=== PATIENT | female | born 1990 | race Caucasian/White ===

== ENCOUNTER 2017-03-02 06:45 | Emergency (ER) | payer OTHER ==
[~2017-03-02] VITALS: Ht 162.6 cm; Wt 64.0 kg
[~2017-03-02 06:45] MED LIST: IBUP-1542 PO; PRENAT PO
[2017-03-02 06:48] VITALS: Ht 162.6 cm; Wt 64.0 kg
[2017-03-02] MEDS ORDERED: LORA-441 PO (07:21)
[2017-03-02] MEDS ORDERED: LORAZEPAM 1 MG TAB PO ONE (07:30)
--- NOTE | 2017-03-02 08:07 | ERD ---
ER Documentation Chief Complaint Date/Time DATE: 03/02/17 TIME: 07:54 Chief Complaint pt bib family with c/o anxiety attack this am while at work being talked to HPI 26 year old female complaining of anxiety attack earlier today at work. Patient is having difficulty with coworkers at work. She feels that she is being blamed for something that was not her fault and having difficulty managing the stress. Patient has never had anxiety in the past. Denies chest pain. Patient is not taking medications for symptoms. Denies suicidal or homicidal ideations. Denies fever. Denies headaches. Denies vomiting ROS All systems reviewed and are negative except as per history of present illness. Medications Home Meds Active Scripts Lorazepam* (Ativan*) 0.5 Mg Tablet, 0.5 MG PO Q8, #10 TAB Prov:ANDRE ALONSO PA-C 03/02/17 Ibuprofen* (Motrin*) 600 Mg Tab, 600 MG PO Q6, #30 TAB Prov:GABBY SRINIVASAN PA-C 02/21/16 Reported Medications Multivit/Min/Fol Ac/Iron/Pren* ( S*) 1 Tab Tab, 1 TAB PO DAILY, TAB 11/12/14 Allergies Allergies: Coded Allergies: No Known Allergies (Unverified Allergy, Unknown, 09/24/14) PMhx/Soc History of Surgery: Yes ( X 3) Anesthesia Reaction: No Hx Neurological Disorder: No Hx Respiratory Disorders: No Hx Cardiac Disorders: No Hx Psychiatric Problems: No Hx Miscellaneous Medical Probl: No Hx Alcohol Use: No Hx Substance Use: No Hx Tobacco Use: No Physical Exam Vitals Vital Signs Date Time Temp Pulse Resp B/P Pulse Ox O2 Delivery O2 Flow Rate FiO2 03/02/17 06:48 99.0 97 16 128/81 99 Physical Exam GENERAL: The patient is well-appearing, well-nourished, in no acute distress HEENT: Atraumatic. Conjunctivae are pink. Pupils equal, round, and reactive to light. There is no scleral icterus. Tympanic membranes clear bilaterally. Oropharynx clear. No nystagmus or photophobia. CHEST: Clear to auscultation bilaterally. There are no rales, wheezes or rhonchi. HEART: Regular rate and rhythm. No murmurs, clicks, rubs or gallops. No S3 or S4. NEUROLOGIC: Alert and oriented. Cranial nerves II through XII intact. Motor strength in all 4 extremities with 5 out of 5 strength. Sensation grossly intact. Normal speech and gait. Babinski negative. DTR 2+ throughout. Results 24 hrs Current Medications Medications (Trade) Dose Ordered Sig/Damaris Route PRN Reason Start Time Stop Time Status Last Admin Dose Admin Lorazepam (Ativan) 1 mg ONCE ONCE PO 03/02/17 07:30 03/02/17 07:31 DC 03/02/17 07:22 Procedures/MDM MDM: 26 yr old female complaining of anxiety. I have low suspicion for cardiac or pulmonary emergencies. Patient will be given anti-anxiety medication and discharge with strict ER precautions. I have low suspicion for suicidal or homicidal ideations. Patient is denying thoughts of hurting herself or others. Patient is discharged with medication and told to follow-up with primary care within 1 to 2 days for close evaluation. Patient is told to try and get herself out of her current work situation. Patient understood and complied with plan. Departure Diagnosis: Primary Impression: Anxiety attack Condition: Stable Patient Instructions: Anxiety Reaction Referrals: [facility] YOU HAVE RECEIVED A MEDICAL SCREENING EXAM AND THE RESULTS INDICATE THAT YOU DO NOT HAVE A CONDITION THAT REQUIRES URGENT TREATMENT IN THE EMERGENCY DEPARTMENT. FURTHER EVALUATION AND TREATMENT OF YOUR CONDITION CAN WAIT UNTIL YOU ARE SEEN IN YOUR DOCTORS OFFICE WITHIN THE NEXT 1-2 DAYS. IT IS YOUR RESPONSIBILITY TO MAKE AN APPOINTMENT FOR FOLOW-UP CARE. IF YOU HAVE A PRIMARY DOCTOR --you should call your primary doctor and schedule an appointment IF YOU DO NOT HAVE A PRIMARY DOCTOR YOU CAN CALL OUR PHYSICIAN REFERRAL HOTLINE AT IF YOU CAN NOT AFFORD TO SEE A PHYSICIAN YOU CAN CHOSE FROM THE FOLLOWING [facility] [address] [facility]. [facility] [address] [facility]. [facility] [address] [facility]. [facility] [address] [facility]. [facility] [address] [facility]. [facility]. [address] Additional Instructions: FOLLOW UP WITH YOUR PRIMARY CARE PHYSICIAN TOMORROW.Return to this facility if you are not improving as expected. ANDRE ALONSO PA-C Mar 02, 2017 08:07
== END 2017-03-02 07:52 | disposition home or self-care (01) ==
LOC: FTE 06:45
DX: F41.9 Anxiety disorder, unspecified (principal)
CPT/HCPCS: Z7502; Z7610; 99283

== ENCOUNTER 2017-07-16 07:52 | Emergency (ER) | END 2017-07-16 11:02 | disposition home or self-care (01) ==

== ENCOUNTER 2018-07-16 10:08 | Emergency (ER) | payer OTHER ==
[~2018-07-16] VITALS: Wt 73.2 kg
[~2018-07-16 10:08] MED LIST changes: +CYCL10TA7 PO; +LORA-441 PO
[2018-07-16 10:10] VITALS: BP 106/63; PULSE 67; RESP 18
[2018-07-16] MEDS ORDERED: CEPH-443 PO (11:04)
[2018-07-16] MEDS ORDERED: SULF1TAB31 PO (11:04)
[2018-07-16] MEDS ORDERED: NAPR-985 PO (11:04)
--- NOTE | 2018-07-16 13:23 | ERD ---
ER Documentation Chief Complaint Chief Complaint LEFT BIG TOE INGROWN NAIL HPI 28-year-old female presenting with ingrown toenail right great toe. Patient states is been like this for the last week. She says some mild drainage from her toe. Denies other medical problems. Has not use any medications on the site. NKDA. Surgical history denies. Social history denies ROS All systems reviewed and are negative except as per history of present illness. Medications Home Meds Active Scripts Naproxen* (Naprosyn*) 500 Mg Tablet, 500 MG PO BID PRN for PAIN AND/OR INFLAMMATION, #30 TAB Prov:ANDRE ALONSO PA-C 07/16/18 Sulfamethoxazole/Trimethoprim* (Bactrim Ds* Tablet) 1 Each Tablet, 1 TAB PO BID, #14 TAB Prov:ANDRE ALONSO PA-C 07/16/18 Cephalexin* (Keflex*) 500 Mg Capsule, 500 MG PO QID for 7 Days, CAP Prov:ANDRE ALONSO PA-C 07/16/18 Cyclobenzaprine Hcl* (Cyclobenzaprine Hcl*) 10 Mg Tablet, 10 MG PO TID, #15 TAB Prov:ZABRINA VALLES PA-C 07/16/17 Ibuprofen* (Motrin*) 600 Mg Tab, 600 MG PO Q6, #30 TAB Prov:ZABRINA VALLES PA-C 07/16/17 Lorazepam* (Ativan*) 0.5 Mg Tablet, 0.5 MG PO Q8, #10 TAB Prov:ANDRE ALONSO PA-C 03/02/17 Ibuprofen* (Motrin*) 600 Mg Tab, 600 MG PO Q6, #30 TAB Prov:GABBY SRINIVASAN PA-C 02/21/16 Reported Medications Multivit/Min/Fol Ac/Iron/Pren* ( S*) 1 Tab Tab, 1 TAB PO DAILY, TAB 11/12/14 Allergies Allergies: Coded Allergies: No Known Allergies (Unverified Allergy, Unknown, 07/16/18) PMhx/Soc History of Surgery: Yes ( X 3) Anesthesia Reaction: No Hx Neurological Disorder: No Hx Respiratory Disorders: No Hx Cardiac Disorders: No Hx Psychiatric Problems: No Hx Miscellaneous Medical Probl: No Hx Alcohol Use: No Hx Substance Use: No Hx Tobacco Use: No FmHx Family History: No diabetes, No coronary disease, No other Physical Exam Vitals Vital Signs Date Temp Pulse Resp B/P (MAP) Pulse Ox O2 O2 Flow FiO2 Time Delivery Rate 07/16/18 98.1 67 18 106/63 99 10:10 (77) Physical Exam GENERAL: The patient is well-appearing, well-nourished, in no acute distress CHEST: Clear to auscultation bilaterally. There are no rales, wheezes or rhonchi. HEART: Regular rate and rhythm. No murmurs, clicks, rubs or gallops. No S3 or S4 EXTREMITIES: Equal pulses bilaterally. No focal swelling NEUROLOGIC: Alert and oriented. Sensation grossly intact. SKIN: Erythema noted to bilateral sides of the right great toe. No fluctuance noted. No swelling. Procedures/MDM MDM: 28-year-old female presenting with erythema of the right great toenail. P atient did not needed removal of the toenail as there did not appear to be any swelling so I recommend patient take antibiotics and apply warm compresses. Patient is recommended to return in 2 days for wound recheck. She was told symptoms change or worsen to return sooner. I have low suspicion for deep tracking infection. All questions answered at discharge Departure Diagnosis: Primary Impression: Nail problem Condition: Stable Patient Instructions: Ingrown Toenail, Infected (Abx Only) Referrals: [facility] YOU HAVE RECEIVED A MEDICAL SCREENING EXAM AND THE RESULTS INDICATE THAT YOU DO NOT HAVE A CONDITION THAT REQUIRES URGENT TREATMENT IN THE EMERGENCY DEPARTMENT. FURTHER EVALUATION AND TREATMENT OF YOUR CONDITION CAN WAIT UNTIL YOU ARE SEEN IN YOUR DOCTORS OFFICE WITHIN THE NEXT 1-2 DAYS. IT IS YOUR RESPONSIBILITY TO MAKE AN APPOINTMENT FOR FOLOW-UP CARE. IF YOU HAVE A PRIMARY DOCTOR --you should call your primary doctor and schedule an appointment IF YOU DO NOT HAVE A PRIMARY DOCTOR YOU CAN CALL OUR PHYSICIAN REFERRAL HOTLINE AT IF YOU CAN NOT AFFORD TO SEE A PHYSICIAN YOU CAN CHOSE FROM THE FOLLOWING [facility] [address] [facility] [address] [facility]. [facility] [address] [facility] [address] [facility]. [facility] [address] [facility]. [facility]. [address] Additional Instructions: FOLLOW UP WITH YOUR PRIMARY CARE PHYSICIAN TOMORROW.Return to this facility if you are not improving as expected. ANDRE ALONSO PA-C Jul 16, 2018 13:23
== END 2018-07-16 11:17 | disposition home or self-care (01) ==
LOC: FTE 10:08
DX: L60.0 Ingrowing nail (principal)
CPT/HCPCS: 99283

== ENCOUNTER 2018-09-28 10:53 | Emergency (ER) | payer OTHER ==
[~2018-09-28] VITALS: Ht 165.1 cm; Wt 72.4 kg
[~2018-09-28 10:53] MED LIST changes: +CEPH-443 PO; +NAPR-985 PO; +SULF1TAB31 PO
[2018-09-28 10:59] VITALS: BP 112/63; PULSE 85; RESP 18; Ht 165.1 cm; Wt 72.4 kg
[2018-09-28] MEDS ORDERED: AMOX1TAB10 PO (11:21)
[2018-09-28] MEDS ORDERED: GUAIFENESIN/DM 5ML CUP PO ONE (11:30)
--- NOTE | 2018-09-28 11:37 | ERD ---
ER Documentation Chief Complaint Chief Complaint throat pain x 1 week HPI 28-year-old female with no past medical or surgical history who presents with 1 week complaint of sore throat, cough, headache, rhinorrhea, as well as generalized body aches. She is most concerned about sore throat worsening pain but denies any issues with speech and is still eating and drinking without issue. She otherwise denies fevers, chest pain, shortness of breath, dyspnea, dysphagia, nausea vomiting, diarrhea, abdominal pain, urinary symptoms. She reports no allergies to any medications. ROS All systems reviewed and are negative except as per history of present illness. Medications Home Meds Active Scripts Amoxicillin/Potassium Clav (Amox-Clav 875-125 mg Tablet) 875-125 mg Tab, 1 TAB PO BID for 7 Days, #14 TAB Prov:AYLEEN CAMP PA-C 09/28/18 Naproxen* (Naprosyn*) 500 Mg Tablet, 500 MG PO BID PRN for PAIN AND/OR INFLAMMATION, #30 TAB Prov:ANDRE ALONSO PA-C 07/16/18 Sulfamethoxazole/Trimethoprim* (Bactrim Ds* Tablet) 1 Each Tablet, 1 TAB PO BID, #14 TAB Prov:ANDRE ALONSO PA-C 07/16/18 Cephalexin* (Keflex*) 500 Mg Capsule, 500 MG PO QID for 7 Days, CAP Prov:ANDRE ALONSO PA-C 07/16/18 Cyclobenzaprine Hcl* (Cyclobenzaprine Hcl*) 10 Mg Tablet, 10 MG PO TID, #15 TAB Prov:ZABRINA VALLES PA-C 07/16/17 Ibuprofen* (Motrin*) 600 Mg Tab, 600 MG PO Q6, #30 TAB Prov:ZABRINA VALLES PA-C 07/16/17 Lorazepam* (Ativan*) 0.5 Mg Tablet, 0.5 MG PO Q8, #10 TAB Prov:ANDRE ALONSO PA-C 03/02/17 Ibuprofen* (Motrin*) 600 Mg Tab, 600 MG PO Q6, #30 TAB Prov:GABBY SRINIVASAN PA-C 02/21/16 Reported Medications Multivit/Min/Fol Ac/Iron/Pren* ( S*) 1 Tab Tab, 1 TAB PO DAILY, TAB 4/27/15 Allergies Allergies: Coded Allergies: No Known Allergies (Unverified Allergy, Unknown, 09/28/18) PMhx/Soc History of Surgery: Yes ( X 3) Anesthesia Reaction: No Hx Neurological Disorder: No Hx Respiratory Disorders: No Hx Cardiac Disorders: No Hx Psychiatric Problems: No Hx Miscellaneous Medical Probl: No Hx Alcohol Use: No Hx Substance Use: No Hx Tobacco Use: No Smoking Status: Never smoker Physical Exam Vitals Vital Signs Date Temp Pulse Resp B/P (MAP) Pulse Ox O2 O2 Flow FiO2 Time Delivery Rate 09/28/18 99.1 85 18 112/63 96 10:59 (79) Physical Exam I have reviewed the triage vital signs. Const: Well nourished, well developed, appears stated age Eyes: PERRL, no conjunctival injection HENT: NCAT, Neck supple without meningismus, tonsils enlarged but without exudate, no lesions noted, tender cervical lymphadenopathy CV: RRR, Warm, well-perfused extremities RESP: CTAB, Unlabored respiratory effort GI: soft, non-tender, non-distended, no masses MSK: No gross deformities appreciated Skin: Warm, dry. No rashes Neuro: Alert grossly intact Psych: Appropriate mood and affect. Results 24 hrs Current Medications Medications Dose Sig/Damaris Start Time Status Last (Trade) Ordered Route PRN Stop Time Admin Dose Reason Admin 10 ml ONCE ONCE 09/28/18 Guaifenesin/ PO 11:30 Dextromethorp 09/28/18 11:31 dunham (Robitussin Dm Liquid Cup) Procedures/MDM 28 yo F pt presenting with worsening of sore throat with reassuring exam. No history of immunocompromise. Nontoxic appearance. Patient euvolemic with no red flag symptoms. no trismus and no airway compromise. Able to tolerate PO. 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 Symptoms may be secondary to strep and thus have elected to treat with course of augmentin with PMD follow up. Given length of flu like symptoms and reassuring exam will not elect to treat with tamiflu. Plan to DC home with prompt outpatient PCP follow up; return precautions discussed Departure Diagnosis: Primary Impression: Sore throat Additional Impression: Strep pharyngitis Condition: Stable Patient Instructions: When You Have a Sore Throat, Self-Care for Sore Throats Additional Instructions: Call your primary care doctor TOMORROW for an appointment during the next 2-3 days.See the doctor sooner or return here if your condition worsens before your appointment time. AYLEEN CAMP PA-C Sep 28, 2018 11:37
== END 2018-09-28 12:00 | disposition home or self-care (01) ==
LOC: FTE 10:53
DX: J02.0 Streptococcal pharyngitis (principal)
CPT/HCPCS: Z7502; Z7610; 99283

== ENCOUNTER 2018-12-05 14:33 | Emergency (ER) | payer OTHER ==
[~2018-12-05] VITALS: Ht 162.6 cm; Wt 73.8 kg
[~2018-12-05 14:33] MED LIST changes: +AMOX1TAB10 PO
[2018-12-05 14:36] VITALS: BP 116/62; PULSE 74; RESP 18; Ht 162.6 cm; Wt 73.8 kg
[2018-12-05] MEDS ORDERED: ONDA4TAB14 PO (16:57)
--- NOTE | 2018-12-05 17:03 | ERD ---
ER Documentation Chief Complaint Chief Complaint vomiting x 8 today, also feels anxious with intermittent palpitations HPI 28-year-old G5, P5 female with no reported past medical surgical history who presents with complaint of feeling anxious. Also refer for reporting of intermittent vomiting today but denies any current nausea, abdominal or pelvic pain, diarrhea. 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 Has 5 children at home and reports increased level of stress providing care for children at home. She otherwise denies chest pain, shortness of breath, dyspnea, headaches, dizziness, fever, chills, urinary symptoms, drug or alcohol abuse. She denies any thoughts ideas of suicide. At time examination patient is completely nontoxic appearing with unremarkable exam. ROS All systems reviewed and are negative except as per history of present illness. Medications Home Meds Active Scripts Ondansetron (Ondansetron Odt) 4 Mg Tab.rapdis, 4 MG PO Q6H PRN for NAUSEA AND/OR VOMITING, #10 TAB Prov:AYLENE CAMP PA-C 12/05/18 Amoxicillin/Potassium Clav (Amox-Clav 875-125 mg Tablet) 875-125 mg Tab, 1 TAB PO BID for 7 Days, #14 TAB Prov:AYLEEN CAMP PA-C 09/28/18 Naproxen* (Naprosyn*) 500 Mg Tablet, 500 MG PO BID PRN for PAIN AND/OR INFLAMMATION, #30 TAB Prov:ANDRE ALONSO PA-C 07/16/18 Sulfamethoxazole/Trimethoprim* (Bactrim Ds* Tablet) 1 Each Tablet, 1 TAB PO BID, #14 TAB Prov:ANDRE ALONSO PA-C 07/16/18 Cephalexin* (Keflex*) 500 Mg Capsule, 500 MG PO QID for 7 Days, CAP Prov:ANDRE ALONSO PA-C 07/16/18 Cyclobenzaprine Hcl* (Cyclobenzaprine Hcl*) 10 Mg Tablet, 10 MG PO TID, #15 TAB Prov:ZABRINA VALLES PA-C 07/16/17 Ibuprofen* (Motrin*) 600 Mg Tab, 600 MG PO Q6, #30 TAB Prov:ZABRINA VALLES PA-C 07/16/17 Lorazepam* (Ativan*) 0.5 Mg Tablet, 0.5 MG PO Q8, #10 TAB Prov:ANDRE ALONSO PA-C 03/02/17 Ibuprofen* (Motrin*) 600 Mg Tab, 600 MG PO Q6, #30 TAB Prov:ZARINAGABBYElvin Palmer PA-C 02/21/16 Reported Medications Multivit/Min/Fol Ac/Iron/Pren* ( S*) 1 Tab Tab, 1 TAB PO DAILY, TAB 11/12/14 Allergies Allergies: Coded Allergies: No Known Allergies (Unverified Allergy, Unknown, 09/28/18) PMhx/Soc History of Surgery: Yes ( X 3) Anesthesia Reaction: No Hx Neurological Disorder: No Hx Respiratory Disorders: No Hx Cardiac Disorders: No Hx Psychiatric Problems: No Hx Miscellaneous Medical Probl: No Hx Alcohol Use: Yes (Socially) Hx Substance Use: No Hx Tobacco Use: No Smoking Status: Never smoker FmHx Family History: No diabetes, No coronary disease, No other Physical Exam Vitals Vital Signs Date Temp Pulse Resp B/P (MAP) Pulse Ox O2 O2 Flow FiO2 Time Delivery Rate 12/05/18 98.0 74 18 116/62 99 14:36 (80) Physical Exam I have reviewed the triage vital signs. Const: Well nourished, well developed, appears stated age Eyes: PERRL, no conjunctival injection HENT: NCAT, Neck supple without meningismus CV: RRR, Warm, well-perfused extremities RESP: CTAB, Unlabored respiratory effort GI: soft, non-tender, non-distended, no masses MSK: No gross deformities appreciated Skin: Warm, dry. No rashes Neuro: grossly non focal Psych: Appropriate mood and affect. Procedures/MDM 28-year-old female with past medical history of anxiety presents with complaint of anxiety. Also intermittent vomiting but denies abdominal pain or pelvic pain and with completely unremarkable abdominal exam. I have low suspicion for acute abdominal pelvic process warranting further emergent care or work-up. Given her benign exam is no indication for imaging at this time. Symptoms likely se condary to anxiety. Will discharge with short course of Ativan as well as Zofran for nausea with strict return precautions explained to patient in detail. DISPOSITION PLAN: We discussed follow up with the patient's primary care doctor within 24 to 48 ho urs. Patient counseled regarding my diagnostic impression and care plan. Prior to discharge all questions answered. Pt agrees with treatment plan and understands strict return precautions. Precautionary instructions provided including instructions to return to the ER if not improving or for any worsening or changing symptoms or concerns. Disclaimer: Inadvertent spelling and grammatical errors are likely due to EHR/dictation software use and do not reflect on the overall quality of patient care. Also, please note that the electronic time recorded on this note does not necessarily reflect the actual time of the patient encounter. Departure Diagnosis: Primary Impression: Anxiety Additional Impression: Multiple complaints Condition: Stable Patient Instructions: Your Body's Response to Anxiety, Anxiety Reaction Referrals: [facility] YOU HAVE RECEIVED A MEDICAL SCREENING EXAM AND THE RESULTS INDICATE THAT YOU DO NOT HAVE A CONDITION THAT REQUIRES URGENT TREATMENT IN THE EMERGENCY DEPARTMENT. FURTHER EVALUATION AND TREATMENT OF YOUR CONDITION CAN WAIT UNTIL YOU ARE SEEN IN YOUR DOCTORS OFFICE WITHIN THE NEXT 1-2 DAYS. IT IS YOUR RESPONSIBILITY TO MAKE AN APPOINTMENT FOR FOLOW-UP CARE. IF YOU HAVE A PRIMARY DOCTOR --you should call your primary doctor and schedule an appointment IF YOU DO NOT HAVE A PRIMARY DOCTOR YOU CAN CALL OUR PHYSICIAN REFERRAL HOTLINE AT IF YOU CAN NOT AFFORD TO SEE A PHYSICIAN YOU CAN CHOSE FROM THE FOLLOWING [facility] [address] [facility]. [facility] [address] [facility] [address] [facility]. [facility] [address] [facility] [address] [facility]. [facility]. [address] Additional Instructions: Call your primary care doctor TOMORROW for an appointment during the next 2-3 days.See the doctor sooner or return here if your condition worsens before your appointment time. AYLEEN ACMP PA-C December 05, 2018 17:03
[2018-12-05] MEDS ORDERED: LORA-441 PO (17:04)
== END 2018-12-05 17:35 | disposition home or self-care (01) ==
LOC: FTE 14:33
DX: F41.9 Anxiety disorder, unspecified (principal)
CPT/HCPCS: 81025; Z7502; 99283